=== PATIENT | female | born 1935 | race Caucasian/White ===

== ENCOUNTER → 2018-10-28 15:56 | Outpatient (CLI) | payer MEDICARE, BC ==
[2018-10-28 16:34] LABS: BASOPHILS 0.2 % (0-2); EOSINOPHILS 5.4 % (0-7); HEMATOCRIT 34.5 % (36.0-48.0); HEMOGLOBIN 11.1 g/dL (12-16); IMMATURE GRANULOCYTES 0.2 % (0-5); LYMPHOCYTES 13.3 % (15-50); MCH 28.2 pg (26.0-34.0); MCHC 32.2 g/dL (31.0-37.0); MCV 87.6 fL (80.0-100.0); MEAN PLATELET VOLUME 9.7 fL (7.4-10.4); MONOCYTES 2.8 % (2-11); NEUTROPHILS 78.1 % (40-80); PLATELET COUNT 195 10x3/uL (130-400); RBC 3.94 10x6/uL (4.00-5.40); RDW 14.1 % (11.5-14.5)
== END | disposition home or self-care (01) ==
LOC: D.LAB 15:56
PROVIDERS: Obstetrics & Gynecology Gynecology
DX: C57.00 Malignant neoplasm of unspecified fallopian tube (principal)

== ENCOUNTER → 2018-11-04 16:25 | Outpatient (CLI) | payer MEDICARE, BC ==
[2018-11-04 17:13] LABS: BASOPHILS 1.5 % (0-2); EOSINOPHILS 7.4 % (0-7); HEMATOCRIT 30.7 % (36.0-48.0); HEMOGLOBIN 9.7 g/dL (12-16); IMMATURE GRANULOCYTES 0.5 % (0-5); LYMPHOCYTES 38.6 % (15-50); MCHC 31.6 g/dL (31.0-37.0); MCV 88.5 fL (80.0-100.0); MEAN PLATELET VOLUME 9.5 fL (7.4-10.4); MONOCYTES 17.3 % (2-11); NEUTROPHILS 34.7 % (40-80); PLATELET COUNT 190 10x3/uL (130-400); RBC 3.47 10x6/uL (4.00-5.40); RDW 14.3 % (11.5-14.5)
== END | disposition home or self-care (01) ==
LOC: D.LAB 16:25
PROVIDERS: Obstetrics & Gynecology Gynecology
DX: C57.00 Malignant neoplasm of unspecified fallopian tube (principal)

== ENCOUNTER → 2018-11-18 15:49 | Outpatient (CLI) | payer MEDICARE, BC ==
[2018-11-18 16:39] LABS: BASOPHILS 0.2 % (0-2); EOSINOPHILS 4.1 % (0-7); HEMATOCRIT 32.3 % (36.0-48.0); HEMOGLOBIN 10.3 g/dL (12-16); IMMATURE GRANULOCYTES 0.2 % (0-5); MCHC 31.9 g/dL (31.0-37.0); MCV 87.8 fL (80.0-100.0); MEAN PLATELET VOLUME 9.3 fL (7.4-10.4); MONOCYTES 1.7 % (2-11); NEUTROPHILS 75.8 % (40-80); PLATELET COUNT 191 10x3/uL (130-400); RBC 3.68 10x6/uL (4.00-5.40); RDW 14.2 % (11.5-14.5); WBC 4.8 10x3/uL (4.8-10.8)
[2018-11-18 17:15] LABS: ALBUMIN 3.3 g/dL (3.4-5.0); ANION GAP 13.4 mmol/L (8-16); BILIRUBIN - DIRECT 0.06 mg/dL (0.00-0.30); BILIRUBIN - INDIRECT 0.08 mg/dL (0.00-1.00); BILIRUBIN - TOTAL 0.14 mg/dL (0.2-1.3); CARBON DIOXIDE 23.9 mmol/L (21.0-32.0); CREATININE - SERUM 0.9 mg/dL (0.6-1.3); MAGNESIUM - SERUM 1.9 mg/dL (1.8-2.4); PHOSPHOROUS 4.2 mg/dL (2.5-4.9); POTASSIUM - SERUM 4.3 mmol/L (3.5-5.1); PROTEIN - SERUM 7.1 g/dL (6.4-8.2)
== END | disposition home or self-care (01) ==
LOC: D.LAB 15:49
PROVIDERS: Obstetrics & Gynecology Gynecology
DX: C57.00 Malignant neoplasm of unspecified fallopian tube (principal)

== ENCOUNTER → 2018-11-25 15:55 | Outpatient (CLI) | payer MEDICARE, BC ==
[2018-11-25 16:43] LABS: BASOPHILS 0.5 % (0-2); EOSINOPHILS 1.9 % (0-7); HEMATOCRIT 29.4 % (36.0-48.0); HEMOGLOBIN 9.4 g/dL (12-16); IMMATURE GRANULOCYTES 0.5 % (0-5); LYMPHOCYTES 30.2 % (15-50); MCV 87.5 fL (80.0-100.0); MEAN PLATELET VOLUME 8.9 fL (7.4-10.4); MONOCYTES 24.7 % (2-11); NEUTROPHILS 42.2 % (40-80); PLATELET COUNT 161 10x3/uL (130-400); RBC 3.36 10x6/uL (4.00-5.40); RDW 14.3 % (11.5-14.5); WBC 2.2 10x3/uL (4.8-10.8)
== END | disposition home or self-care (01) ==
LOC: D.LAB 15:55
PROVIDERS: Obstetrics & Gynecology Gynecology
DX: C57.00 Malignant neoplasm of unspecified fallopian tube (principal)

== ENCOUNTER → 2018-12-02 16:11 | Outpatient (CLI) | payer MEDICARE, BC ==
[2018-12-02 16:43] LABS: BASOPHILS 0.6 % (0-2); EOSINOPHILS 2.4 % (0-7); HEMATOCRIT 31.2 % (36.0-48.0); HEMOGLOBIN 9.9 g/dL (12-16); IMMATURE GRANULOCYTES 0.3 % (0-5); LYMPHOCYTES 36.3 % (15-50); MCH 28.1 pg (26.0-34.0); MCHC 31.7 g/dL (31.0-37.0); MCV 88.6 fL (80.0-100.0); MEAN PLATELET VOLUME 9.1 fL (7.4-10.4); MONOCYTES 14.8 % (2-11); NEUTROPHILS 45.6 % (40-80); PLATELET COUNT 130 10x3/uL (130-400); RBC 3.52 10x6/uL (4.00-5.40); WBC 3.3 10x3/uL (4.8-10.8)
== END | disposition home or self-care (01) ==
LOC: D.LAB 16:11
PROVIDERS: Obstetrics & Gynecology Gynecology
DX: C57.00 Malignant neoplasm of unspecified fallopian tube (principal)

== ENCOUNTER → 2018-12-09 14:29 | Outpatient (CLI) | payer MEDICARE, BC ==
[2018-12-09 14:55] LABS: BASOPHILS 0.2 % (0-2); EOSINOPHILS 4.8 % (0-7); HEMATOCRIT 32.1 % (36.0-48.0); HEMOGLOBIN 10.2 g/dL (12-16); IMMATURE GRANULOCYTES 0.2 % (0-5); LYMPHOCYTES 21.2 % (15-50); MCH 28.5 pg (26.0-34.0); MCHC 31.8 g/dL (31.0-37.0); MCV 89.7 fL (80.0-100.0); MEAN PLATELET VOLUME 9.4 fL (7.4-10.4); NEUTROPHILS 72.6 % (40-80); RBC 3.58 10x6/uL (4.00-5.40); RDW 15.3 % (11.5-14.5); WBC 4.2 10x3/uL (4.8-10.8)
[2018-12-09 14:58] LABS: PLATELET COUNT 184 10x3/uL (130-400)
== END | disposition home or self-care (01) ==
LOC: D.LAB 14:29
PROVIDERS: Obstetrics & Gynecology Gynecology
DX: C56.9 Malignant neoplasm of unspecified ovary (principal); C57.00 Malignant neoplasm of unspecified fallopian tube

== ENCOUNTER → 2018-12-16 15:49 | Outpatient (CLI) | payer MEDICARE, BC ==
[2018-12-16 16:32] LABS: HEMOGLOBIN 9.6 g/dL (12-16); MCH 28.3 pg (26.0-34.0); MCV 88.5 fL (80.0-100.0); MEAN PLATELET VOLUME 9.3 fL (7.4-10.4); PLATELET COUNT 157 10x3/uL (130-400); RBC 3.39 10x6/uL (4.00-5.40); RDW 15.1 % (11.5-14.5)
[2018-12-16 16:35] LABS: WBC 1.6 10x3/uL (4.8-10.8)
[2018-12-16 16:57] LABS: EOSINOPHILS 6 % (0-7); LYMPHOCYTES 64 % (15-50); MONOCYTES 2 % (2-11); NEUTROPHILS 28 % (40-80); PLATELET ESTIMATE NORMAL
== END | disposition home or self-care (01) ==
LOC: D.LAB 15:49
PROVIDERS: Obstetrics & Gynecology Gynecology
DX: C56.9 Malignant neoplasm of unspecified ovary (principal); C57.00 Malignant neoplasm of unspecified fallopian tube

== ENCOUNTER → 2018-12-23 15:44 | Outpatient (CLI) | payer MEDICARE, BC ==
[2018-12-23 16:08] LABS: BASOPHILS 0.2 % (0-2); EOSINOPHILS 1.2 % (0-7); HEMATOCRIT 31.3 % (36.0-48.0); HEMOGLOBIN 10.1 g/dL (12-16); IMMATURE GRANULOCYTES 0.2 % (0-5); LYMPHOCYTES 25.5 % (15-50); MCH 28.6 pg (26.0-34.0); MCHC 32.3 g/dL (31.0-37.0); MCV 88.7 fL (80.0-100.0); MEAN PLATELET VOLUME 9.1 fL (7.4-10.4); MONOCYTES 12.9 % (2-11); RBC 3.53 10x6/uL (4.00-5.40); RDW 15.7 % (11.5-14.5); WBC 4.1 10x3/uL (4.8-10.8)
[2018-12-23 16:14] LABS: PLATELET COUNT 117 10x3/uL (130-400)
[2018-12-23 16:56] LABS: ALBUMIN 3.4 g/dL (3.4-5.0); ANION GAP 14.2 mmol/L (8-16); BILIRUBIN - DIRECT 0.07 mg/dL (0.00-0.30); BILIRUBIN - INDIRECT 0.17 mg/dL (0.00-1.00); BILIRUBIN - TOTAL 0.24 mg/dL (0.2-1.3); CALCIUM 8.2 mg/dL (8.5-10.1); CARBON DIOXIDE 25.6 mmol/L (21.0-32.0); CREATININE - SERUM 1.1 mg/dL (0.6-1.3); MAGNESIUM - SERUM 1.6 mg/dL (1.8-2.4); PHOSPHOROUS 3.6 mg/dL (2.5-4.9); POTASSIUM - SERUM 3.8 mmol/L (3.5-5.1); PROTEIN - SERUM 6.8 g/dL (6.4-8.2)
== END | disposition home or self-care (01) ==
LOC: D.LAB 15:44
PROVIDERS: Obstetrics & Gynecology Gynecology
DX: C56.9 Malignant neoplasm of unspecified ovary (principal); C57.00 Malignant neoplasm of unspecified fallopian tube

== ENCOUNTER → 2018-12-30 14:59 | Outpatient (CLI) | payer MEDICARE, BC ==
[2018-12-30 15:20] LABS: BASOPHILS 0.3 % (0-2); EOSINOPHILS 3.8 % (0-7); HEMATOCRIT 30.9 % (36.0-48.0); IMMATURE GRANULOCYTES 0.3 % (0-5); LYMPHOCYTES 20.8 % (15-50); MCH 28.6 pg (26.0-34.0); MCHC 32.4 g/dL (31.0-37.0); MCV 88.3 fL (80.0-100.0); MONOCYTES 1.3 % (2-11); NEUTROPHILS 73.5 % (40-80); RDW 15.9 % (11.5-14.5); WBC 3.9 10x3/uL (4.8-10.8)
[2018-12-30 15:21] LABS: PLATELET COUNT 153 10x3/uL (130-400)
== END | disposition home or self-care (01) ==
LOC: D.LAB 14:59
PROVIDERS: Obstetrics & Gynecology Gynecology
DX: C56.9 Malignant neoplasm of unspecified ovary (principal); C57.00 Malignant neoplasm of unspecified fallopian tube

== ENCOUNTER → 2019-01-13 16:38 | Outpatient (CLI) | payer MEDICARE, BC ==
[2019-01-13 16:59] LABS: BASOPHILS 0.5 % (0-2); EOSINOPHILS 1.1 % (0-7); HEMATOCRIT 31.8 % (36.0-48.0); HEMOGLOBIN 10.3 g/dL (12-16); IMMATURE GRANULOCYTES 1.1 % (0-5); LYMPHOCYTES 20.7 % (15-50); MCH 28.9 pg (26.0-34.0); MCHC 32.4 g/dL (31.0-37.0); MCV 89.1 fL (80.0-100.0); MEAN PLATELET VOLUME 9.7 fL (7.4-10.4); MONOCYTES 10.9 % (2-11); NEUTROPHILS 65.7 % (40-80); RBC 3.57 10x6/uL (4.00-5.40); RDW 15.3 % (11.5-14.5); WBC 4.4 10x3/uL (4.8-10.8)
[2019-01-13 17:14] LABS: PLATELET COUNT 102 10x3/uL (130-400)
[2019-01-13 18:42] LABS: ALBUMIN 3.2 g/dL (3.4-5.0); ANION GAP 11.8 mmol/L (8-16); BILIRUBIN - DIRECT 0.07 mg/dL (0.00-0.30); BILIRUBIN - INDIRECT 0.16 mg/dL (0.00-1.00); BILIRUBIN - TOTAL 0.23 mg/dL (0.2-1.3); CARBON DIOXIDE 28.4 mmol/L (21.0-32.0); CREATININE - SERUM 0.9 mg/dL (0.6-1.3); MAGNESIUM - SERUM 1.6 mg/dL (1.8-2.4); PHOSPHOROUS 4.1 mg/dL (2.5-4.9); POTASSIUM - SERUM 4.2 mmol/L (3.5-5.1); PROTEIN - SERUM 6.6 g/dL (6.4-8.2)
== END | disposition home or self-care (01) ==
LOC: D.LAB 16:38
PROVIDERS: Obstetrics & Gynecology Gynecology
DX: C56.9 Malignant neoplasm of unspecified ovary (principal); C57.00 Malignant neoplasm of unspecified fallopian tube

== ENCOUNTER → 2019-01-20 12:37 | Outpatient (CLI) | payer MEDICARE, BC ==
[2019-01-20 13:07] LABS: BASOPHILS 0.5 % (0-2); HEMATOCRIT 30.6 % (36.0-48.0); HEMOGLOBIN 9.7 g/dL (12-16); IMMATURE GRANULOCYTES 0.3 % (0-5); LYMPHOCYTES 24.2 % (15-50); MCH 28.5 pg (26.0-34.0); MCHC 31.7 g/dL (31.0-37.0); MEAN PLATELET VOLUME 9.2 fL (7.4-10.4); PLATELET COUNT 246 10x3/uL (130-400); RDW 15.9 % (11.5-14.5); WBC 3.9 10x3/uL (4.8-10.8)
== END | disposition home or self-care (01) ==
LOC: D.LAB 12:37
PROVIDERS: ATTEND Obstetrics & Gynecology Gynecology
DX: C56.9 Malignant neoplasm of unspecified ovary (principal); C57.00 Malignant neoplasm of unspecified fallopian tube

== ENCOUNTER → 2019-01-27 14:45 | Outpatient (CLI) | payer MEDICARE, BC ==
[2019-01-27 15:35] LABS: BASOPHILS 0 % (0-2); EOSINOPHILS 1.7 % (0-7); HEMATOCRIT 31.6 % (36.0-48.0); HEMOGLOBIN 10.2 g/dL (12-16); LYMPHOCYTES 36.2 % (15-50); MCHC 32.3 g/dL (31.0-37.0); MCV 89.8 fL (80.0-100.0); MEAN PLATELET VOLUME 9.4 fL (7.4-10.4); MONOCYTES 2.6 % (2-11); NEUTROPHILS 59.5 % (40-80); PLATELET COUNT 259 10x3/uL (130-400); RBC 3.52 10x6/uL (4.00-5.40); RDW 16.1 % (11.5-14.5); WBC 3.5 10x3/uL (4.8-10.8)
== END | disposition home or self-care (01) ==
LOC: D.LAB 14:45
PROVIDERS: ATTEND Obstetrics & Gynecology Gynecology
DX: C80.1 Malignant (primary) neoplasm, unspecified (principal)

== ENCOUNTER → 2019-02-03 15:41 | Outpatient (CLI) | payer MEDICARE, BC ==
[2019-02-03 16:07] LABS: BASOPHILS 0.4 % (0-2); EOSINOPHILS 0.9 % (0-7); HEMATOCRIT 28.1 % (36.0-48.0); LYMPHOCYTES 45.1 % (15-50); MCH 28.9 pg (26.0-34.0); MCV 90.4 fL (80.0-100.0); MEAN PLATELET VOLUME 8.9 fL (7.4-10.4); MONOCYTES 21.7 % (2-11); NEUTROPHILS 31.9 % (40-80); PLATELET COUNT 107 10x3/uL (130-400); RBC 3.11 10x6/uL (4.00-5.40); RDW 15.9 % (11.5-14.5); WBC 2.4 10x3/uL (4.8-10.8)
== END | disposition home or self-care (01) ==
LOC: D.LAB 15:41
PROVIDERS: ATTEND Obstetrics & Gynecology Gynecology
DX: C56.9 Malignant neoplasm of unspecified ovary (principal); C57.00 Malignant neoplasm of unspecified fallopian tube

== ENCOUNTER → 2019-02-10 16:08 | Outpatient (CLI) | payer MEDICARE, BC ==
[2019-02-10 16:31] LABS: HEMATOCRIT 29.2 % (36.0-48.0); HEMOGLOBIN 9.4 g/dL (12-16); MCH 29.5 pg (26.0-34.0); MCHC 32.2 g/dL (31.0-37.0); MCV 91.5 fL (80.0-100.0); MEAN PLATELET VOLUME 9.8 fL (7.4-10.4); PLATELET COUNT 117 10x3/uL (130-400); RBC 3.19 10x6/uL (4.00-5.40); RDW 15.7 % (11.5-14.5); WBC 2.7 10x3/uL (4.8-10.8)
[2019-02-10 17:04] LABS: ANION GAP 16.3 mmol/L (8-16); CARBON DIOXIDE 25.4 mmol/L (21.0-32.0); CHOL - HDL RATIO 2.7 ratio (2.3-4.1); CREATININE - SERUM 1.2 mg/dL (0.6-1.3); LDL-HDL RATIO 1.3 ratio (1.5-3.5); MAGNESIUM - SERUM 1.9 mg/dL (1.8-2.4); PHOSPHOROUS 4.1 mg/dL (2.5-4.9); POTASSIUM - SERUM 4.7 mmol/L (3.5-5.1)
[2019-02-10 18:49] LABS: EOSINOPHILS 4 % (0-7); LYMPHOCYTES 37 % (15-50); MONOCYTES 10 % (2-11); NEUTROPHILS 49 % (40-80); PLATELET ESTIMATE DECREASED
== END | disposition home or self-care (01) ==
LOC: D.LAB 16:08
PROVIDERS: ATTEND Obstetrics & Gynecology Gynecology
DX: C56.9 Malignant neoplasm of unspecified ovary (principal); C57.00 Malignant neoplasm of unspecified fallopian tube

== ENCOUNTER → 2019-02-17 14:28 | Outpatient (CLI) | payer MEDICARE, BC ==
[2019-02-17 14:48] LABS: BASOPHILS 0.6 % (0-2); EOSINOPHILS 2.9 % (0-7); HEMATOCRIT 29.6 % (36.0-48.0); HEMOGLOBIN 9.6 g/dL (12-16); LYMPHOCYTES 33.3 % (15-50); MCH 29.7 pg (26.0-34.0); MCHC 32.4 g/dL (31.0-37.0); MCV 91.6 fL (80.0-100.0); MEAN PLATELET VOLUME 8.7 fL (7.4-10.4); MONOCYTES 1.6 % (2-11); NEUTROPHILS 61.6 % (40-80); PLATELET COUNT 125 10x3/uL (130-400); RBC 3.23 10x6/uL (4.00-5.40); WBC 3.2 10x3/uL (4.8-10.8)
== END | disposition home or self-care (01) ==
LOC: D.LAB 14:28
PROVIDERS: ATTEND Obstetrics & Gynecology Gynecology
DX: Z00.00 Encounter for general adult medical examination without abnormal findings (principal)

== ENCOUNTER → 2019-02-24 16:13 | Outpatient (CLI) | payer MEDICARE, BC ==
[2019-02-24 16:36] LABS: HEMATOCRIT 24.8 % (36.0-48.0); HEMOGLOBIN 8.2 g/dL (12-16); MCH 29.8 pg (26.0-34.0); MCHC 33.1 g/dL (31.0-37.0); MCV 90.2 fL (80.0-100.0); MEAN PLATELET VOLUME 9.2 fL (7.4-10.4); RBC 2.75 10x6/uL (4.00-5.40); RDW 15.4 % (11.5-14.5)
[2019-02-24 17:21] LABS: PLATELET COUNT 86 10x3/uL (130-400)
[2019-02-24 18:31] LABS: EOSINOPHILS 2 % (0-7); LYMPHOCYTES 58 % (15-50); NEUTROPHILS 40 % (40-80); PLATELET ESTIMATE DECREASED
[2019-02-24 18:34] LABS: WBC 1.7 10x3/uL (4.8-10.8)
== END | disposition home or self-care (01) ==
LOC: D.LAB 16:13
PROVIDERS: ATTEND Obstetrics & Gynecology Gynecology
DX: C56.9 Malignant neoplasm of unspecified ovary (principal)

== ENCOUNTER → 2019-03-03 15:46 | Outpatient (CLI) | payer MEDICARE, BC ==
[2019-03-03 16:23] LABS: HEMATOCRIT 24.8 % (36.0-48.0); HEMOGLOBIN 8.3 g/dL (12-16); MCH 30.1 pg (26.0-34.0); MCHC 33.5 g/dL (31.0-37.0); MCV 89.9 fL (80.0-100.0); MEAN PLATELET VOLUME 8.9 fL (7.4-10.4); PLATELET COUNT 99 10x3/uL (130-400); RBC 2.76 10x6/uL (4.00-5.40); RDW 15.4 % (11.5-14.5); WBC 2.4 10x3/uL (4.8-10.8)
[2019-03-03 16:42] LABS: ALBUMIN 3.1 g/dL (3.4-5.0); ANION GAP 14.4 mmol/L (8-16); BILIRUBIN - DIRECT 0.09 mg/dL (0.00-0.30); BILIRUBIN - INDIRECT 0.19 mg/dL (0.00-1.00); BILIRUBIN - TOTAL 0.28 mg/dL (0.2-1.3); CARBON DIOXIDE 24.3 mmol/L (21.0-32.0); CREATININE - SERUM 1.1 mg/dL (0.6-1.3); MAGNESIUM - SERUM 1.9 mg/dL (1.8-2.4); PHOSPHOROUS 3.9 mg/dL (2.5-4.9); POTASSIUM - SERUM 4.7 mmol/L (3.5-5.1); PROTEIN - SERUM 6.9 g/dL (6.4-8.2)
[2019-03-03 17:38] LABS: LYMPHOCYTES 35 % (15-50); NEUTROPHILS 65 % (40-80); PLATELET ESTIMATE DECREASED
== END | disposition home or self-care (01) ==
LOC: D.LAB 15:46
PROVIDERS: ATTEND Obstetrics & Gynecology Gynecology
DX: C56.9 Malignant neoplasm of unspecified ovary (principal)

== ENCOUNTER → 2019-12-19 15:22 | Outpatient (CLI) | payer MEDICARE, BC ==
[2019-12-19 15:52] LABS: BASOPHILS 0.3 % (0-2); EOSINOPHILS 0.9 % (0-7); HEMATOCRIT 31.8 % (36.0-48.0); HEMOGLOBIN 9.7 g/dL (12-16); IMMATURE GRANULOCYTES 0.3 % (0-5); MCH 27.2 pg (26.0-34.0); MCHC 30.5 g/dL (31.0-37.0); MCV 89.3 fL (80.0-100.0); MEAN PLATELET VOLUME 8.6 fL (7.4-10.4); MONOCYTES 11.8 % (2-11); NEUTROPHILS 73.7 % (40-80); RBC 3.56 10x6/uL (4.00-5.40); RDW 16.3 % (11.5-14.5); WBC 6.6 10x3/uL (4.8-10.8)
[2019-12-19 15:56] LABS: PLATELET COUNT 277 10x3/uL (130-400)
== END | disposition home or self-care (01) ==
LOC: D.LAB 15:22
PROVIDERS: ATTEND Obstetrics & Gynecology Gynecology
DX: C56.9 Malignant neoplasm of unspecified ovary (principal)

== ENCOUNTER → 2020-01-09 15:22 | Outpatient (CLI) | payer MEDICARE, BC ==
[2020-01-05 14:11] VITALS: BMI 21.2
[~2020-01-09 15:22] MED LIST: ALBUTEROL SULF8.5 GM INH; DILAUDID4 MG PO; DULCOLAX STOOL100 MG PO; LIPITOR10 MG PO; LISINOPRIL20 MG PO; SPIRIVA RESPIMAT4 G1 INH; TRAZODONE HCL150 MG PO; ZOFRAN ODT4 MG/UDTAB PO
[2020-01-09 16:05] LABS: HEMATOCRIT 34.3 % (36.0-48.0); HEMOGLOBIN 10.5 g/dL (12-16); MCH 27.9 pg (26.0-34.0); MCHC 30.6 g/dL (31.0-37.0); MEAN PLATELET VOLUME 9.2 fL (7.4-10.4); RBC 3.77 10x6/uL (4.00-5.40); RDW 15.1 % (11.5-14.5)
[2020-01-09 16:18] LABS: ANION GAP 6.2 mmol/L (8-16); BILIRUBIN - DIRECT 0.08 mg/dL (0.00-0.30); BILIRUBIN - INDIRECT 0.12 mg/dL (0.00-1.00); BILIRUBIN - TOTAL 0.2 mg/dL (0.2-1.3); CARBON DIOXIDE 37.1 mmol/L (21.0-32.0); CREATININE - SERUM 1.1 mg/dL (0.6-1.3); MAGNESIUM - SERUM 2.2 mg/dL (1.8-2.4); PHOSPHOROUS 3.4 mg/dL (2.5-4.9); POTASSIUM - SERUM 4.3 mmol/L (3.5-5.1)
[2020-01-09 16:36] LABS: PLATELET COUNT 243 10x3/uL (130-400)
[2020-01-09 17:26] LABS: EOSINOPHILS 2 % (0-7); LYMPHOCYTES 34 % (15-50); MONOCYTES 5 % (2-11); NEUTROPHILS 48 % (40-80); PLATELET ESTIMATE NORMAL
== END | disposition home or self-care (01) ==
LOC: D.LAB 15:22
PROVIDERS: ATTEND Obstetrics & Gynecology Gynecology
DX: C56.9 Malignant neoplasm of unspecified ovary (principal)